=== PATIENT | female | born 1995 | race Caucasian/White ===

== ENCOUNTER 2018-12-30 17:26 | Emergency (ER) | payer OTHER ==
[2018-12-30] MEDS ORDERED: ASPIRIN 81 MG CHEWABLE TABLETS PO ONE (17:32)
--- NOTE | 2018-12-30 17:34 | PDOC ---
Rapid Medical Evaluation Chief Complaint: Chest Pain Time Seen by Provider: 12/30/18 17:30 Medical Evaluation: Allergies Allergy/AdvReac Type Severity Reaction Status Date / Time No Known Allergies Allergy Verified 12/30/18 17:31 12/30/18 17:33 HPI: on xarelto for PE 04/04 CP x1 day since this am PE: No gross deficits ORDERS: Labs and cardiac work up 12/30/18 17:34 Discharge Disposition - Diagnosis Chest pain - Referrals - Patient Instructions - Post Discharge Activity
[2018-12-30 17:36] VITALS: TEMP 98.2; BMI 29.4
[2018-12-30] MEDS ORDERED: ASPIRIN 81 MG CHEWABLE TABLETS ONE (17:59)
[2018-12-30 18:18] LABS: BASO % 0.4 % (0-2.0); EOS % 0.1 % (0-4.5); HEMATOCRIT 41.7 % (32.4-45.2); HEMOGLOBIN 13.5 GM/dL (10.7-15.3); LYMPH % 11.2 % (8-40); MCH 28.5 pg (25.7-33.7); MCHC 32.3 g/dl (32.0-36.0); MEAN CELL VOLUME 88.4 fl (80-96); MEAN PLT VOLUME 7.5 fl (7.5-11.1); MONO % 4.8 % (3.8-10.2); NEUT % 83.5 % (42.8-82.8); PLATELET COUNT 401 K/MM3 (134-434); RBC 4.72 M/mm3 (3.60-5.2); RDW 14.7 % (11.6-15.6); WHITE BLOOD COUNT 11.6 K/mm3 (4.0-10.0)
[2018-12-30 18:53] LABS: ALBUMIN 3.9 g/dl (3.4-5.0); ALK PHOS 72 U/L (45-117); ANION GAP 8 MMOL/L (8-16); BILIRUBIN,TOTAL 0.5 mg/dL (0.2-1); BLOOD UREA NITROGEN 11 mg/dL (7-18); CALCIUM 9.7 mg/dL (8.5-10.1); CHLORIDE 102 mmol/L (98-107); CO2 28 mmol/L (21-32); CREATININE 0.9 mg/dL (0.55-1.3); GLUCOSE,RANDOM 86 mg/dL (74-106); MAGNESIUM 1.9 mg/dL (1.8-2.4); POTASSIUM 4.4 mmol/L (3.5-5.1); SGOT/AST 17 U/L (15-37); SGPT/ALT 23 U/L (13-61); SODIUM 137 mmol/L (136-145); TOT PROT 8.2 g/dl (6.4-8.2)
[2018-12-30 18:59] VITALS: BP 127/79; PULSE 90
[2018-12-30 19:34] LABS: INR 1.17 (0.83-1.09); PROTHROMBIN TIME (PATIENT) 13.8 SEC (9.7-13.0)
[2018-12-30] MEDS ORDERED: ACETAMINOPHEN 1000 MG/100 ML VIAL (NON FORMULARY) IVPB ONE (19:39)
--- NOTE | 2018-12-30 19:43 | PDOC ---
History of Present Illness - General Chief Complaint: Chest Pain Stated Complaint: HEADACHE/NAUSEA Time Seen by Provider: 12/30/18 17:30 History Source: Patient Exam Limitations: No Limitations - History of Present Illness Initial Comments: 12/30/18 19:39 23 year old woman with a history of PE on xarelto who presents with 2 days of nonradiating central chest pain described as sharp and rated 9/10 that started last night was waxing and waning and then became constant since noon. The patient reports a dry cough for 1 day. It was not determined what caused the patient's prior PE, but she is not on OCP (has an IUD) and has had no recent travel or immobilization. Denies nausea, shortness of breath, recent illness, diarrhea dysuria. Past History - Past Medical History Allergies/Adverse Reactions: Allergies Allergy/AdvReac Type Severity Reaction Status Date / Time No Known Allergies Allergy Verified 12/30/18 17:31 Home Medications: Ambulatory Orders Rivaroxaban [Xarelto -] 20 mg PO HS 12/30/18 COPD: No - Immunization History Immunization Up to Date: Yes - Suicide/Smoking/Psychosocial Hx Smoking History: Never smoked Hx Alcohol Use: No Drug/Substance Use Hx: No Review of Systems - Review of Systems Able to Perform ROS?: Yes Comments:: 12/30/18 22:22 GENERAL/CONSTITUTIONAL: No fever or chills. No weakness. HEAD, EYES, EARS, NOSE AND THROAT: No change in vision. No ear pain or discharge. No sore throat. CARDIOVASCULAR: No chest pain or shortness of breath RESPIRATORY: No cough, wheezing, or hemoptysis. GASTROINTESTINAL: No nausea, vomiting, diarrhea or constipation. GENITOURINARY: No dysuria, frequency, or change in urination. MUSCULOSKELETAL: No joint or muscle swelling or pain. No neck or back pain. SKIN: No rash NEUROLOGIC: No headache, vertigo, loss of consciousness, or change in strength/ sensation. ENDOCRINE: No increased thirst. No abnormal weight change HEMATOLOGIC/LYMPHATIC: No anemia, easy bleeding, or history of blood clots. ALLERGIC/IMMUNOLOGIC: No hives or skin allergy. Is the patient limited Mosotho proficient: No *Physical Exam - Vital Signs Last Vital Signs Temp Pulse Resp BP Pulse Ox 98.2 F 90 16 127/79 100 12/30/18 17:32 12/30/18 18:55 12/30/18 18:55 12/30/18 18:55 12/30/18 18:55 - Physical Exam Comments: 12/30/18 22:35 GENERAL: Awake, alert, and fully oriented, in no acute distress HEAD: No signs of trauma, normocephalic, atraumatic EYES: EOMI, sclera anicteric, conjunctiva clear ENT: oropharynx clear without exudates. Moist mucosa NECK: Normal ROM, supple LUNGS: No distress, speaks full sentences, clear to auscultation bilaterally HEART: Regular rate and rhythm, normal S1 and S2, no murmurs, rubs or gallops, peripheral pulses normal and equal bilaterally. ABDOMEN: Soft, nontender, normoactive bowel sounds. No guarding, no rebound. No masses EXTREMITIES : Normal inspection, Normal range of motion, no edema. No clubbing or cyanosis. NEUROLOGICAL: Cranial nerves II through XII grossly intact. Normal speech, normal gait, no focal sensorimotor deficits SKIN: Warm, Dry, normal turgor, no rashes or lesions noted ED Treatment Course - LABORATORY CBC & Chemistry Diagram: 12/30/18 17:57 12/30/18 17:57 - ADDITIONAL ORDERS Additional order review: Laboratory Results 12/30/18 12/30/18 17:57 17:57 PT with INR 13.80 H INR 1.17 H Sodium 137 Potassium 4.4 Chloride 102 Carbon Dioxide 28 Anion Gap 8 BUN 11 Creatinine 0.9 Est GFR (CKD-EPI)AfAm 104.45 Est GFR (CKD-EPI)NonAf 90.12 Random Glucose 86 Calcium 9.7 Magnesium 1.9 Total Bilirubin 0.5 AST 17 ALT 23 Alkaline Phosphatase 72 Creatine Kinase 148 Troponin I < 0.02 Total Protein 8.2 Albumin 3.9 12/30/18 17:57 RBC 4.72 MCV 88.4 MCHC 32.3 RDW 14.7 MPV 7.5 Neutrophils % 83.5 H Lymphocytes % 11.2 Monocytes % 4.8 Eosinophils % 0.1 Basophils % 0.4 - Medications Given in the ED: ED Medications Discontinued Medications Generic Name Dose Route Start Last Admin Trade Name Freq PRN Reason Stop Dose Admin Aspirin 162 mg 12/30/18 17:32 12/30/18 18:02 Asa - PO 12/30/18 17:33 162 mg ONCE ONE Administration Medical Decision Making - Medical Decision Making 12/30/18 19:38 23 year old woman with a history of PE on xarelto who presents with 2 days of nonradiating central chest pain described as sharp and rated 9/10 that started last night was waxing and waning and then became constant since noon. The patient reports a dry cough for 1 day. It was not determined what caused the patient's prior PE, but she is not on OCP (has an IUD) and has had no recent travel or immobilization. Denies nausea, shortness of breath, recent illness, diarrhea dysuria. ED Course: PE vs acs vs arrythmia vs pna cbc, cmp, coags, ua, CTA chest patient cannot be PERC'd out at bedside tachycaric however with oral temp of 99.5F will dose tylenol and fluids ekg: normal sinus at 80bpm labs wnl, negative urine CTA pendign 12/30/18 22:36 CTA unremarkable patient reassessed, feels improvement of symptoms will d/c with pcp f/u. *DC/Admit/Observation/Transfer Diagnosis at time of Disposition: Chest wall pain - Discharge Dispostion Disposition: HOME Condition at time of disposition: Stable Decision to Admit order: No - Referrals Referrals: Bear Warner MD [Primary Care Provider] - - Patient Instructions Printed Discharge Instructions: DI for Chest Pain Additional Instructions: You were seen in the ED for complaints of chest pain. In the ED you were evaluated with labwork Your results were unremarkable. There does not appear to be an acute need for immediate hospitalization. You are advised to follow up with your Primary Care Physician within 1 week. Return to the ED immediately if you experience worsening chest pain, shortness of breath, nausea, vomiting, swelling in the legs, or loss of consciousness. Usted fue visto en el servicio de urgencias por quejas de dolor en el pecho. En el servicio de urgencias te evaluaron con trabajo de laboratorio. Karmen resultados no fueron notables. No parece ely antoinette necesidad aguda de hospitalizacin inmediata. Se recomienda realizar un seguimiento con pulliam mdico de atencin primaria dentro de 1 semana. Regrese a la bubba de urgencias inmediatamente si experimenta un empeoramiento del dolor en el pecho, dificultad para respirar, nuseas, vmitos, hinchazn en las piernas o prdida de la conciencia. - Post Discharge Activity
[2018-12-30] MEDS ORDERED: SODIUM CHLORIDE 1,000 ML IV SCH (19:45)
[2018-12-30] MEDS ORDERED: ACETAMINOPHEN INJECTION 100 ML IVPB ONE (20:26)
[2018-12-30] MEDS ORDERED: MAG HYDROX/AL HYDROX/SIMETH 30 ML UNIT-DOSE CUP PO ONE (22:27)
[2018-12-30] MEDS ORDERED: FAMOTIDINE 20 MG/50 ML IVPB 20 MG/50 ML MG IVPB ONE (22:27)
--- NOTE | 2018-12-30 22:34 | PDOC ---
Documentation entered by Mery Cardenas SCRIBE, acting as scribe for Vicenta Duron DO. Vicenta Duron DO: This documentation has been prepared by the Ronald carrasco Aiswarya, SCRIBE, under my direction and personally reviewed by me in its entirety. I confirm that the documentation accurately reflects all work, treatment, procedures, and medical decision making performed by me. Attending Attestation - Resident Resident Name: Shayy Chandler - ED Attending Attestation I have performed the following: I have examined & evaluated the patient, The case was reviewed & discussed with the resident, I agree w/resident's findings & plan - HPI HPI: 12/30/18 20:43 The patient is a 23 year old female, with a significant PMH of PE on Xarelto, who presents to the emergency department with chest pain that began last night. The patient states she woke up last night and noticed mid sternal non radiating chest pain that progressively worsened this afternoon, 9/10 severity. The patient denies shortness of breath, headache and dizziness.Denies fever, chills, nausea, vomit, diarrhea and constipation. Allergies: None reported Past surgical history: None reported Social history: None reported PCP: Alana Sifuentes - Physicial Exam PE: 12/30/18 20:46 Agree with residents note. - Medical Decision Making 12/30/18 22:34 23-year-old female with a history of pulmonary embolism currently anticoagulated on several toe complaining of left-sided chest wall pain CTA shows no PE or significant acute abnormalities On reevaluation at 10:30 PM patient is asymptomatic and is comfortable going home at this time She will follow up with her regular physicians and has been advised that should she develop any new or concerning symptoms to return to the emergency department
--- NOTE | 2018-12-31 14:26 | EKG ---
Test Reason : Blood Pressure : / mmHG Vent. Rate : 080 BPM Atrial Rate : 080 BPM P-R Int : 148 ms QRS Dur : 082 ms QT Int : 362 ms P-R-T Axes : 056 060 039 degrees QTc Int : 417 ms NORMAL SINUS RHYTHM WITH SINUS ARRHYTHMIA NORMAL ECG NO PREVIOUS ECGS AVAILABLE Confirmed by LOIS LYLE, LUCIA ([id number]) on 12/31/2018 2:26:09 PM Referred By: Confirmed By:LUCIA ABREU MD
== END 2018-12-30 22:58 | disposition home or self-care (01) ==
LOC: JER 17:26
PROC: 3E033NZ Introduction of Analgesics, Hypnotics, Sedatives into Peripheral Vein, Percutaneous Approach (ICD-10-PCS; principal; 2018-12-30)
DX: R07.89 Other chest pain (principal)
CPT/HCPCS: 36415; 71275-TC; 80053; 82550; 83735; 84484; 84703; 85025; 85610; 93005; 93010; 99285-25; J0131; J7030

== ENCOUNTER 2019-07-02 04:48 | Day surgery (SDC) | payer OTHER ==
[2019-06-25 13:21] VITALS: BMI 30.8
[2019-07-02] MEDS ORDERED: MIDAZOLAM HCL 2 MG/2 ML SINGLE DOSE VIAL ONE (07:24)
[2019-07-02] MEDS ORDERED: PROPOFOL 20 ML ONE (07:25)
--- NOTE | 2019-07-02 07:40 | HP ---
Admitting History and Physical - Admission Chief Complaint: Abnormal Pap smear History of Present Illness: 23 yo Para 1 LMP 06/13/19, with cervical dysplasia is pre op for LEEP. History Source: Patient Limitations to Obtaining History: No Limitations - Past Medical History ...LMP: 06/13/19 ...: No ...Para: 1 - Past Surgical History Past Surgical History: Yes: None - Smoking History Smoking history: Never smoked If you are a former smoker, when did you quit?: SMOKES HOOKHA - Alcohol/Substance Use Hx Alcohol Use: Yes (SOCIAL) - Social History Usual Living Arrangement: Yes: With Child History of Recent Travel: No Home Medications - Allergies Allergies/Adverse Reactions: Allergies Allergy/AdvReac Type Severity Reaction Status Date / Time No Known Allergies Allergy Verified 07/02/19 06:53 - Home Medications Home Medications: Ambulatory Orders NK [No Known Home Medication] 06/25/19 Family Medical History Family History: Unremarkable Review of Systems - Review of Systems Constitutional: reports: No Symptoms Eyes: reports: No Symptoms HENT: reports: No Symptoms Neck: reports: No Symptoms Cardiovascular: reports: No Symptoms Respiratory: reports: No Symptoms Gastrointestinal: reports: No Symptoms Genitourinary: reports: No Symptoms Breasts: reports: No Symptoms Reported Musculoskeletal: reports: No Symptoms Integumentary: reports: No Symptoms Neurological: reports: No Symptoms Endocrine: reports: No Symptoms Psychiatric: reports: No Symptoms Pain Intensity: 0 Physical Examination Vital Signs: Vital Signs Temperature 97.8 F 07/02/19 06:55 Pulse Rate 78 07/02/19 06:55 Respiratory Rate 16 07/02/19 06:55 Blood Pressure 134/78 07/02/19 06:55 O2 Sat by Pulse Oximetry (%) 100 07/02/19 06:55 Constitutional: Yes: Well Nourished Eyes: Yes: Conjunctiva Clear HENT: Yes: Atraumatic Neck: Yes: Supple, Trachea Midline Cardiovascular: Yes: Regular Rate and Rhythm Respiratory: Yes: Regular Gastrointestinal: Yes: Normal Bowel Sounds ...Rectal Exam: Yes: WNL Renal/: Yes: WNL Breast(s): Yes: WNL Neurological: Yes: Alert, Oriented ...Motor Strength: WNL Psychiatric: Yes: Alert, Oriented Problem List - Problems (1) Cervical dysplasia Problems reviewed: Yes Code(s): N87.9 - DYSPLASIA OF CERVIX UTERI, UNSPECIFIED Assessment/Plan Cervical dysplasia Pre op for LEEP Consent signed Anesthesia to see patient
[2019-07-02] MEDS ORDERED: IODINE/POTASSIUM IODIDE 5%/10% 14 ML BOTTLE NR ONE (07:53)
[2019-07-02] MEDS ORDERED: KETOROLAC TROMETHAMINE 30 MG/1 ML VIAL ONE (07:59)
[2019-07-02] MEDS ORDERED: DEXAMETHASONE SOD PHOSPHATE 4 MG/1 ML VIAL ONE (07:59)
[2019-07-02] MEDS ORDERED: FERRIC SUBSULFATE 500 ML BOTTLE TP ONE (08:13)
[2019-07-02] MEDS ORDERED: oxyCODONE HCL 5 MG TABLET PO PRN (08:54)
[2019-07-02] MEDS ORDERED: ONDANSETRON 4 MG/2 ML VIAL IVPUSH PRN (08:54)
[2019-07-02] MEDS ORDERED: LACTATED RINGERS SOLUTION 1,000 ML IV SCH (09:00)
[2019-07-02 09:46] VITALS: TEMP 97.7
--- NOTE | 2019-07-02 09:53 | OP ---
Operative Note - Note: Operative Date: 07/02/19 Pre-Operative Diagnosis: Cervical dysplasia Operation: Loop Electrode Excisional Procedure Findings: Aceto white area with application of acetic acid on cervix. Post-Operative Diagnosis: Same as Pre-op Surgeon: Alison Goodwin Anesthesia: General Specimens Removed: Portion of the cervix Estimated Blood Loss (mls): 200 Operative Report Dictated: Yes
--- NOTE | 2019-07-02 10:24 | OP ---
DATE OF OPERATION: 07/02/2019 PREOPERATIVE DIAGNOSIS: Cervical dysplasia. POSTOPERATIVE DIAGNOSIS: Cervical dysplasia. PROCEDURE: Loop electrode excisional procedure. SURGEON: Alison Goodwin MD ANESTHESIA: General. COMPLICATIONS: None. ESTIMATED BLOOD LOSS: 200 mL. DESCRIPTION OF PROCEDURE: Patient was taken to the operating room where general anesthesia was administered. Patient was then placed in lithotomy position. She was then prepped and draped in proper sterile fashion. Acetic acid was applied over the cervix; an acetowhite area was noted at 6 o'clock position. Lugol solution was then applied; the same 6 o'clock area remained unstained. Then a 2 x 1cm loop electrode was used to excise a portion of the cervix. There was significant amount of bleeding noted. Bleeding was cauterized, and Monsel solution was then applied. Lastly, hemostasis was obtained using a suture at the posterior portion of the cervix. Then the instruments were removed. The patient was taken out of lithotomy position. She was taken to PACU in stable condition. PATHOLOGY: Portion of the cervix. Bruce [id number] MTDD
[2019-07-02 11:50] VITALS: BP 115/58; PULSE 70
--- NOTE | 2019-07-06 13:58 | PATH ---
Surgical Pathology Report Patient Name: ANIKA RAMIREZ [facility]. Rec. #: [id number] /Age/Gender: 1995 (Age: 23) / F Account: [id number] Location: [facility] Taken: 07/02/2019 Received: 07/02/2019 Reported: 07/06/2019 Physicians: Alison Goodwin M.D. Specimen(s) Received PORTION OF CERVIX Clinical History Cervical dysplasia Final Diagnosis PORTION OF CERVIX, LOOP ELECTROSURGICAL EXCISION PROCEDURE (LEEP)/CONE BIOPSY: CERVICAL SQUAMOUS AND ENDOCERVICAL MUCOSA WITH FOCAL HIGH GRADE SQUAMOUS INTRAEPITHELIAL LESION (CERVICAL INTRAEPITHELIAL NEOPLASIA 3/ TRIXIE 3); AREAS OF LOW GRADE SQUAMOUS INTRAEPITHELIAL LESION ALSO PRESENT. SURGICAL RESECTION MARGINS: NEGATIVE FOR HIGH GRADE DYSPLASIA. TRANSFORMATION ZONE: PRESENT. Electronically Signed Tonya Kaufman M.D. Gross Description Received in formalin labeled "portion of cervix for LEEP loop," are 2 bowman-pink, irregular, unoriented portions of soft tissue measuring 1.0 x 0.7 x 0.3 cm and 1.4 x 1.3 x 0.5 cm. No discrete cervical os is identified. The specimens are inked black and serially sectioned. The specimen is entirely submitted in 4 cassettes with the smaller portion in cassette 1. 07/02/2019 [facility]07/02/2019
== END 2019-07-02 11:58 | disposition home or self-care (01) ==
LOC: JASU-SURG 04:48
PROVIDERS: ATTEND Obstetrics & Gynecology
PROC: 0UBC7ZX Excision of Cervix, Via Natural or Artificial Opening, Diagnostic (ICD-10-PCS; principal; 2019-07-02 07:30)
DX: D06.9 Carcinoma in situ of cervix, unspecified (principal)
CPT/HCPCS: 84703; 88307-TC; 94760

== ENCOUNTER 2021-08-08 17:53 | Emergency (ER) | payer OTHER ==
[2021-08-08 18:59] VITALS: BP 125/71; PULSE 82; TEMP 101.4; BMI 30.1
[2021-08-08] MEDS ORDERED: METOCLOPRAMIDE HCL 10 MG TABLET (FP) PO ONE ×2 (19:12→20:18)
[2021-08-08] MEDS ORDERED: diphenhydrAMINE HCL 25 MG CAPSULE (FP) PO ONE ×2 (19:12→20:18)
[2021-08-08] MEDS ORDERED: ACETAMINOPHEN 500 MG TABLET (FP) PO ONE (19:12)
[2021-08-08] MEDS ORDERED: ACETAMINOPHEN 500 MG TABLET (FP) ONE (20:19)
== END 2021-08-08 22:34 | disposition home or self-care (01) ==
LOC: JER 17:53
DX: B34.9 Viral infection, unspecified (principal)
CPT/HCPCS: 71045-TC-FY; 87651; 87804; 99284-25; C9803; U0003; U0005

== ENCOUNTER 2022-02-19 09:40 | Emergency (ER) | payer OTHER ==
[2022-02-19 09:54] VITALS: BP 136/66; PULSE 74; TEMP 99.2; BMI 30.8
[2022-02-19] MEDS ORDERED: ONDANSETRON 4 MG/2 ML VIAL IVPUSH ONE (11:07)
[2022-02-19] MEDS ORDERED: ACETAMINOPHEN 1000 MG/100 ML BAG IVPB ONE (11:07)
[2022-02-19] MEDS ORDERED: RHO(D) IMMUNE GLOBULIN 1,500 UNIT DISP.SYRIN IM ONE (11:07)
[2022-02-19] MEDS ORDERED: ONDANSETRON 4 MG/2 ML VIAL ONE (11:19)
[2022-02-19] MEDS ORDERED: ACETAMINOPHEN INJECTION 100 ML IVPB ONE (11:19)
[2022-02-19 11:37] LABS: BASO % 1.1 % (0-2.0); EOS % 0.2 % (0-4.5); HEMATOCRIT 37.2 % (32.4-45.2); HEMOGLOBIN 12.8 GM/dL (10.7-15.3); LYMPH % 26.5 % (8-40); MCH 30.5 pg (25.7-33.7); MCHC 34.4 g/dl (32.0-36.0); MEAN CELL VOLUME 88.5 fl (80-96); MEAN PLT VOLUME 7.1 fl (7.5-11.1); MONO % 8.1 % (3.8-10.2); NEUT % 64.1 % (42.8-82.8); PLATELET COUNT 330 10^3/uL (134-434); RBC 4.21 M/mm3 (3.60-5.2); RDW 13.6 % (11.6-15.6); WHITE BLOOD COUNT 7.5 K/mm3 (4.0-10.0)
[2022-02-19 11:56] LABS: INR 1.26 (0.83-1.09); PROTHROMBIN TIME (PATIENT) 14.5 SEC (9.7-13.0)
[2022-02-19 11:57] LABS: ALBUMIN 3.7 g/dl (3.4-5.0); CALCIUM 8.9 mg/dL (8.5-10.1)
[2022-02-19 11:59] LABS: ACTIVATED PTT 30.1 SECONDS (25.2-36.5)
[2022-02-19 12:00] LABS: PH,URINE 5.5 (5.0-8.0); URINE APPEARANCE CLEAR; URINE BILIRUBIN NEGATIVE (NEGATIVE); URINE COLOR YELLOW; URINE GLUCOSE (UA) NEGATIVE (NEGATIVE); URINE KETONE 1+ (NEGATIVE); URINE LEUK ESTERASE NEGATIVE (NEGATIVE); URINE NITRITE NEGATIVE (NEGATIVE); URINE PROTEIN NEGATIVE (NEGATIVE); URINE UROBILINOGEN 0.2 mg/dL (0.2-1.0)
[2022-02-19 12:01] LABS: CREATININE 0.5 mg/dL (0.55-1.3)
[2022-02-19 12:02] LABS: BILIRUBIN,TOTAL 0.7 mg/dL (0.2-1); TOT PROT 7.4 g/dl (6.4-8.2)
== END 2022-02-19 14:27 | disposition home or self-care (01) ==
LOC: JER 09:40
PROC: 3E0333Z Introduction of Anti-inflammatory into Peripheral Vein, Percutaneous Approach (ICD-10-PCS; principal; 2022-02-19)
PROC: 3E033GC Introduction of Other Therapeutic Substance into Peripheral Vein, Percutaneous Approach (ICD-10-PCS; 2022-02-19)
DX: O26.851 Spotting complicating pregnancy, first trimester (principal); O26.891 Other specified pregnancy related conditions, first trimester; R10.2 Pelvic and perineal pain; Z3A.01 Less than 8 weeks gestation of pregnancy
CPT/HCPCS: 36415; 76817-TC; 80053; 81003; 84702; 85025; 85610; 85730; 86850; 86900; 86901; 87086; 99284-25

== ENCOUNTER 2022-05-22 07:32 | Emergency (ER) | payer OTHER ==
[2022-05-22 07:54] VITALS: BP 109/64; PULSE 111; RESP 18; TEMP 98.6; BMI 30.9
[2022-05-22] MEDS ORDERED: ACETAMINOPHEN 500 MG TABLET (FP) PO ONE (08:23)
[2022-05-22] MEDS ORDERED: ACETAMINOPHEN 500 MG TABLET (FP) ONE (08:28)
[2022-05-22 09:10] LABS: THROAT:GRP A STREP NOT DETECTED (NOTDETECTED)
== END 2022-05-22 08:52 | disposition home or self-care (01) ==
LOC: JER 07:32
DX: O99.512 Diseases of the respiratory system complicating pregnancy, second trimester (principal); J02.9 Acute pharyngitis, unspecified; R51.9 Headache, unspecified; R05.1 Acute cough; Z3A.19 19 weeks gestation of pregnancy
CPT/HCPCS: 0241U-QW; 87651; 99283-25

== ENCOUNTER 2022-07-12 21:50 | Emergency (ER) | payer OTHER ==
[2022-07-12 21:53] VITALS: RESP 20; BMI 32.8
[2022-07-12 23:06] VITALS: BP 108/72; PULSE 100; TEMP 98.8
== END 2022-07-13 00:35 | disposition home or self-care (01) ==
LOC: JER 21:50
DX: O99.512 Diseases of the respiratory system complicating pregnancy, second trimester (principal); Z3A.26 26 weeks gestation of pregnancy
CPT/HCPCS: 0241U-QW; 76817-TC; 99284-25

== ENCOUNTER 2022-10-09 10:20 | Inpatient (IN) | payer OTHER ==
[2022-10-09 11:07] VITALS: BMI 37.2
[2022-10-09] MEDS ORDERED: CITRIC ACID/SODIUM CITRATE 30 ML UNIT-DOSE CUP PO ONE ×2 (11:15→12:03)
[2022-10-09] MEDS ORDERED: ELECTROLYTE-148 SOLN 500 ML IV SCH ×2 (11:15→11:45)
[2022-10-09] MEDS ORDERED: OXYTOCIN 20 UNITS in 0.9% NS 40 UNIT/2,000 ML INFUS.BAG IV ONE (12:01)
[2022-10-09] MEDS ORDERED: ceFAZolin SODIUM 1 GM VIAL ONE (12:02)
[2022-10-09] MEDS ORDERED: ONDANSETRON 4 MG/2 ML VIAL ONE (12:02)
[2022-10-09] MEDS ORDERED: DEXAMETHASONE SOD PHOSPHATE 4 MG/1 ML VIAL ONE (12:02)
[2022-10-09] MEDS ORDERED: morphine SULFATE (PF) 1 MG/2 ML SYRINGE ONE (12:02)
[2022-10-09] MEDS ORDERED: ELECTROLYTE-148 SOLN 500 ML IV ONE (12:03)
[2022-10-09] MEDS ORDERED: ELECTROLYTE-148 SOLN 1,000 ML IV SCH (12:15)
[2022-10-09] MEDS ORDERED: KETOROLAC TROMETHAMINE 30 MG/1 ML VIAL ONE (12:56)
[2022-10-09] MEDS ORDERED: ACETAMINOPHEN 325 MG TABLET (FP) PO PRN (13:35)
[2022-10-09] MEDS ORDERED: SENNOSIDES/DOCUSATE COMBO (SENNA PLUS) TABLET (UD) PO PRN (13:35)
[2022-10-09] MEDS ORDERED: ACETAMINOPHEN 1000 MG/100 ML BAG IVPB PRN (13:35)
[2022-10-09] MEDS ORDERED: oxyCODONE HCL 5 MG TABLET PO PRN (13:35)
[2022-10-09] MEDS: OXYTOCIN 20 UNITS in 0.9% NS 20 UNIT/1,000 ML INFUS.BAG IV SCH ×2 (14:49→20:50)
[2022-10-09] MEDS: ONDANSETRON 4 MG/2 ML VIAL IVPB PRN ×2 (15:52→20:56)
[2022-10-09] MEDS: IBUPROFEN 800 MG/8 ML IJ IVPB PRN (15:53)
[2022-10-10] MEDS: IBUPROFEN 800 MG/8 ML IJ IVPB PRN (00:03)
[2022-10-10 07:21] LABS: BASO % 0.2 % (0-2.0); HEMATOCRIT 34.9 % (32.4-45.2); HEMOGLOBIN 12.1 GM/dL (10.7-15.3); LYMPH % 16.8 % (8-40); MCH 31.3 pg (25.7-33.7); MCHC 34.8 g/dl (32.0-36.0); MEAN CELL VOLUME 89.9 fl (80-96); MONO % 4.7 % (3.8-10.2); NEUT % 78.3 % (42.8-82.8); PLATELET COUNT 225 10^3/uL (134-434); RBC 3.88 M/mm3 (3.60-5.2); RDW 15.5 % (11.6-15.6); WHITE BLOOD COUNT 11.7 K/mm3 (4.0-10.0)
[2022-10-10] MEDS ORDERED: BISACODYL 10 MG SUPP.RECT RC PRN (13:36)
[2022-10-10] MEDS: IBUPROFEN 600 MG TABLET (FP) PO PRN ×2 (14:59→21:04)
[2022-10-10] MEDS: SIMETHICONE 80 MG TAB.CHEW (FP) PO PRN ×2 (14:59→21:04)
[2022-10-11] MEDS: SIMETHICONE 80 MG TAB.CHEW (FP) PO PRN ×2 (05:20→21:48)
[2022-10-11] MEDS: ACETAMINOPHEN 500 MG TABLET (FP) PO SCH ×3 (06:03→21:48)
[2022-10-11] MEDS: IBUPROFEN 600 MG TABLET (FP) PO PRN ×2 (09:05→18:03)
[2022-10-11] MEDS: ENOXAPARIN NA (PORCINE) 40 MG/0.4 ML DISP.SYRIN SQ SCH (11:24)
[2022-10-12 01:01] VITALS: RESP 18
[2022-10-12] MEDS: IBUPROFEN 600 MG TABLET (FP) PO PRN ×2 (04:14→10:56)
[2022-10-12] MEDS: SIMETHICONE 80 MG TAB.CHEW (FP) PO PRN (04:14)
[2022-10-12] MEDS: ACETAMINOPHEN 500 MG TABLET (FP) PO SCH (06:00)
[2022-10-12 09:43] VITALS: BP 128/88; PULSE 80; TEMP 98
[2022-10-12] MEDS: ENOXAPARIN NA (PORCINE) 40 MG/0.4 ML DISP.SYRIN SQ SCH (10:56)
== END 2022-10-12 11:50 | disposition home or self-care (01) | DRG 540 ==
LOC: JLDR 10:20 → J3W 15:25
PROVIDERS: ADMIT Specialist; ATTEND Specialist
PROC: 10D00Z1 Extraction of Products of Conception, Low, Open Approach (ICD-10-PCS; principal; 2022-10-09)
DX: O34.211 Maternal care for low transverse scar from previous cesarean delivery (principal); Z3A.39 39 weeks gestation of pregnancy; Z37.0 Single live birth; Z86.718 Personal history of other venous thrombosis and embolism
CPT/HCPCS: 36415; 80053; 85025; 85027; 85610; 85730; 86780; 86850; 86900; 86901; 87389; 88307-TC; 94010; C9803-CS; U0003; U0005

== ENCOUNTER 2023-04-12 07:47 | Emergency (ER) | payer OTHER ==
[2023-04-12 08:05] VITALS: BP 135/93; PULSE 113; RESP 22; TEMP 98.1; BMI 31.2
[2023-04-12] MEDS ORDERED: morphine CARPU-JECT 4 MG/1 ML DISP.SYRIN IVPUSH ONE (08:12)
[2023-04-12] MEDS ORDERED: KETOROLAC TROMETHAMINE 15 MG/ML VIAL IVPUSH ONE (08:13)
[2023-04-12] MEDS ORDERED: LACTATED RINGERS SOLUTION 1000 ML INFUS.BAG IV ONE (08:18)
[2023-04-12] MEDS ORDERED: morphine SULFATE 4 MG/ML VIAL ONE (08:23)
[2023-04-12] MEDS ORDERED: KETOROLAC TROMETHAMINE 15 MG/ML VIAL ONE (08:24)
== END 2023-04-12 09:44 | disposition home or self-care (01) ==
LOC: JER 07:47
PROC: 3E0333Z Introduction of Anti-inflammatory into Peripheral Vein, Percutaneous Approach (ICD-10-PCS; principal; 2023-04-12)
PROC: 3E033GC Introduction of Other Therapeutic Substance into Peripheral Vein, Percutaneous Approach (ICD-10-PCS; 2023-04-12)
DX: T21.12XA Burn of first degree of abdominal wall, initial encounter (principal); T22.112A Burn of first degree of left forearm, initial encounter; T31.0 Burns involving less than 10% of body surface; X08.8XXA Exposure to other specified smoke, fire and flames, initial encounter; Y93.G3 Activity, cooking and baking; Y92.009 Unspecified place in unspecified non-institutional (private) residence as the place of occurrence of the external cause
CPT/HCPCS: 99284-25